=== PATIENT | female | born 1930 | race Caucasian/White ===

== ENCOUNTER 2017-01-18 06:39 | Emergency (ER) | payer MEDICARE, OTHER ==
[~2017-01-18 06:39] MED LIST: ASPIRIN E.C. 8181 MG PO; ATIVAN0.5 MG PO; BENADRYL ALLERG25 M2 PO; BISACODYL10 M1 REC; CELEXA 20MG20 MG/TA1 PO; CLARITIN LIQUI-10 MG PO; COLACE100 M1 PO; DAILY VALUE1 EACH PO; GOOD NEIGH1200 MG/15 PO; LIPITOR 10MG10 MG PO; LOPRESSOR100 M1 PO; NAMENDA PO; REQUIP 0.5MG0.5 MG PO; TYLENOL 500MG500 MG PO; ULTRAM50 M1 PO; VERAPAMIL120 MG/TA1 PO; ZOFRAN4 M2 PO; ZYPREXA 5MG5 MG PO
[2017-01-18 11:01] VITALS: BP 166/81
== END 2017-01-18 09:53 | disposition other institution (70) ==
LOC: ED 06:39
DX: A41.9 Sepsis, unspecified organism (principal); N39.0 Urinary tract infection, site not specified; R53.1 Weakness; R41.82 Altered mental status, unspecified; B96.20 Unspecified Escherichia coli [E. coli] as the cause of diseases classified elsewhere
CPT/HCPCS: A4353; J1956

== ENCOUNTER 2017-01-18 09:53 | Inpatient (IN) | payer MEDICARE, OTHER ==
[2017-01-18 10:23] VITALS: BP 154/70
--- NOTE | 2017-01-18 11:00 | NUR ---
PATIENT HEARD MOANING IN ROOM FROM NURSES STATION. PATIENT REPORTS HAVING UPSET STOMACH. THIS NURSE IN PATIENT'S ROOM TO ADMINISTER IV ATIVAN. NOTED THAT PATIENT HAS LEFT SIDED FACIAL DROOP. LEFT HAND RELATIONSHIP CONSULTANT SLIGHTLY WEAKER THAN RIGHT.
--- NOTE | 2017-01-18 11:59 | NUR ---
ASSIST PATIENT TO CHAIR PER HER REQUEST. PATIENT IS UNABLE TO STAND INDEPENDENTLY AND TAKE STEPS REQUIRED TO REACH THE CHAIR. 2 STAFF ASSIST TO CHAIR VIA PIVOT TRANSFER.
--- NOTE | 2017-01-18 12:05 | NUR ---
REPORT RECEIVED FROM CUCO PINEDO,
--- NOTE | 2017-01-18 12:10 | NUR ---
PATIENT HEARD MOANING IN ROOM FROM NURSES STATION. ASKS MULTIPLE TIMES WHERE HER IS. STATES THAT SHE IS SCARED. WHEN ASKED WHY PATIENT STATES "I DON'T WANT TO FALL" PATIENT TOLD THAT SHE IS IN THE HOSPITAL AND THAT SHE IS SAFE.
--- NOTE | 2017-01-18 13:50 | NUR ---
PATIENT ASSISTED FROM RECLINER TO BEDSIDE COMMODE. 2 PERSON MAXIMUM ASSIST REQUIRED FOR PIVOT TRANSFER. PATIENT NERVOUS ABOUT GETTING UP. IS VERY STIFF AND SHAKING DURING TRANSFER. HOLDING ONTO ARM REST ON CHAIR AND GRABS SOLDER DEPOSIT OPERATOR'S HAND AND HAD TO BE TOLD MULTIPLE TIMES TO LET GO BEFORE RELEASING. STATES "ARE YOU GUYS GOING TO HELP ME? I DON'T THINK I CAN DO IT." PATIENT INCONTINENT OF URINE. UNABLE TO VOID WHILE ON COMMODE. PATIENT ASSISTED INTO BED. SAUD CARE PROVIDED. MILD REDNESS PRESENT TO PATIENT'S GROIN FOLDS. SKIN INTACT. BARRIER CREAM APPLIED. CLEAN BRIEF APPLIED. EKG OBTAINED PER ORDER. EKG REPORT SHOWN TO ELISSA TRAN. CALL LIGHT WITHIN REACH. BED ALARM ON.
--- NOTE | 2017-01-18 15:00 | NUR ---
PATIENT'S NEURO ASSESSMENT COMPLETE. PATIENT ALERT. ORIENTED TO PERSON AND DATE OF . STATES "HOSPITAL" WHEN ASKED WHERE SHE IS BUT IS UNABLE TO VERBALIZE WHICH HOSPITAL AND AGE. SPEECH CLEAR. PATIENT HAS MILD LEFT SIDED FACIAL DROOP. LEFT UPPER EXT SLIGHTLY WEAKER GRASP THAN RIGHT. LEFT PUPIL 3MM RIGHT 2MM. BOTH PUPILS REACTIVE TO LIGHT. PATIENT ABLE TO LIFT BILAT LOWER EXT OFF BED APPROXIMATELY 1 INCH. BILAT LOWER EXT WEAK. WEAKNESS EQUAL. ELISSA TRAN NOTIFIED.
[2017-01-18 15:22] VITALS: BP 158/72
[2017-01-18 18:28] VITALS: BP 133/68
--- NOTE | 2017-01-18 19:20 | NUR ---
REPORT GIVEN TO SHAHIDA TSANG
--- NOTE | 2017-01-18 19:25 | NUR ---
1919 Report received from Melanie Proctor RN
--- NOTE | 2017-01-18 19:30 | NUR ---
Pt given Given CD of [employer] and CD player to listen to it.
--- NOTE | 2017-01-18 19:45 | NUR ---
See shift assessment.
--- NOTE | 2017-01-18 20:30 | NUR ---
See shift assessment. HS care given, oral care given. Pt tolerated well. Incontinent of urine. Negin care given, depends change. Right groin skin continues to be reddem. Skin CDI.
--- NOTE | 2017-01-18 20:43 | NUR ---
Pt given evening medication, pt swallow medications without difficulty. Given ativan PO. Explained to pt is would help her relax and not feel so scared. Pt agreed.
[2017-01-18 22:29] VITALS: BP 159/66
--- NOTE | 2017-01-18 22:30 | NUR ---
Resting in bed, eyes closed, even and none labored respirations. Bed alarm on. IV fluids NS continue to infuse via IV pump at 83mls/hour.
--- NOTE | 2017-01-18 23:40 | NUR ---
Q hourly checks done. Pt has been resting in bed, eyes closed even respirations. Bed alarm on. Currently awake. Pt requesting "something to help her sleep." Pt informed she could get her ativan in one hour. Pt agreed.
[2017-01-19] VITALS (7 sets, daily range): BP systolic 134–182; BP diastolic 65–94
--- NOTE | 2017-01-19 00:36 | NUR ---
Pt has been calling out for "Tanja". Tanja NUCLEAR POWERPLANT SUPERVISOR and myself have taken turns sitting in with pt and talking with her. Pt is calm. 0030 Pt given ativan PO. No difficulty noted swallowing pill or water. Sitting in with pt until she falls asleep.
--- NOTE | 2017-01-19 00:40 | NUR ---
Pt is able to state that Manuela is coming up this month. Pt is able to given the month and year she was born. Pt is able to tell me she is in the hospital. Pt is able to follow commands. She asks questions about why she is in the hospital. Pt needs assistances holding cup to drink. No difficulty swallowing pills or water.
--- NOTE | 2017-01-19 01:49 | NUR ---
Resting in bed, eyes closed, even none labored respirations. Bed alarm on.
--- NOTE | 2017-01-19 02:10 | NUR ---
Awake alert and oriented to self. Pt able to tell me she is at the hospital, ablet to tell me her the month and year she was born. Able to tell me is the next holiday coming up. Able to virtual recruiter with both right and left hands. Strength is weak and equal. Pupils equal and reactive to light. At 0200 Pt was incontinent of urine. Negin care given, depends changed. Pt c/o of pain on right upper abd when turn. No c/o's of pain when abd palpated. Abd soft, bowel sounds active. Pt repositioned on left side. Given warm blanket, applied abd.
--- NOTE | 2017-01-19 02:40 | NUR ---
Resting in bed, eyes closed, even respirations. Bed alarm on
--- NOTE | 2017-01-19 03:20 | NUR ---
Pt able to drink water with out difficulty swallowing. Pt repositioned at 0315.
--- NOTE | 2017-01-19 03:21 | NUR ---
At 0305 Pt awake in bed. A/o to self. Able to give month and year. Able to tell me she is in the hospital. When ask what button to push for nurse, pt states the red button and points to it. Pt c/o of headache. Pupils equal and reactive to light. Equal information technology specialist strength ing right and left hands. Strength is weak. Equal strength in lower extremeties. Lower extremeties strength weak. Pt follow commands. BP 134/66, pulse 59, respirations 18, Sa02 93% on room air. Temp 98.0 (oral). Lungs CTA. 0310 Brought in ultram for pt's headache. Pt stated I forgot all about it.
--- NOTE | 2017-01-19 05:20 | NUR ---
Pt awake, calling out for "Tanja". Pt denied having any pain. Pupils equal and reactive to light. A/o to self. Able to tell me she is at the hospital. Able to tell me her month and year. Pt repositioned.
--- NOTE | 2017-01-19 05:39 | NUR ---
Pt calling out. States she is afraid. Pt comforted, reminded she is safe at the hospital. Pt asked a few questions regarding her stay. She asked " are you going to take care of me." Aske why she was here. Pt reminded. Pt agreed.
--- NOTE | 2017-01-19 07:00 | NUR ---
Report given to Melanie Proctor RN
--- NOTE | 2017-01-19 07:05 | NUR ---
REPORT RECEIVED FROM SHAHIDA TSANG
--- NOTE | 2017-01-19 07:13 | NUR ---
Pt's Sa02 95%, on room air.
--- NOTE | 2017-01-19 07:13 | NUR ---
Pt calling out. Pt continues to be calm once nuring staff is in the room. Pt able to tell me she is in the hospital. Pt able to tell me her month and year. Pt c/o's of nausea, and states she's afraid. Pt given ativan PO and zofran 4mg IV. IV fluids NS continue to infuse at 83mls/hour. Bed alarm set.
--- NOTE | 2017-01-19 07:50 | NUR ---
PATIENT LYING IN BED. SHIFT ASSESSMENT COMPLETE. PATIENT ALERT. ORIENTED TO PERSON, DATE OF , AND AGE. DENIES ANY SHORTNESS OF BREATH OR DIFFICULTIES BREATHING. DENIES ANY PAIN OR DISCOMFORTS AT THIS TIME. PATIENT SEEMS TO BE TRACKING MORE THIS MORNING THAN YESTERDAY. WHEN THIS NURSE WALKED INTO ROOM PATIENT STATES "ELLEN IS THAT YOU" NOT SEVERE OF A FACIAL DROOP TO LEFT SIDE NOTICED THIS MORNING. LEFT UPPER EXT RN PRIVATE DUTY CONTINUES TO BE SLIGHTLY WEAKER THAN RIGHT, BUT IS NOT SIGNIFICANT OF A DIFFERENCE BETWEEN LEFT AND RIGHT YESTERDAY. PATIENT HAS NORMAL SALINE INFUSING AT 83 MLS/HR. PATIENT'S CALL LIGHT WITHIN REACH. BED ALARM ON.
--- NOTE | 2017-01-19 17:06 | NUR ---
Pt's has stated that he does not believe he can take care of pt at home any longer as she has become very weak in the last two weeks and recently cannot use her walker. Culture results show > 100,000 Ecoli, awaiting sensitivity as pt is currently being treated w/ Levaquin. Pt's requests [facility] for LTC, OR if pt gets 3 midnights, Assisted at . Kelsey at is aware that pt may be discharged to either LTC on Sun or SN on Sunday @ [facility]. [facility] states that they can accept this pt over the weekend as they are familiar w/ her. She will let her nursing staff at know this.
--- NOTE | 2017-01-19 17:33 | NUR ---
Discuss w/ pt's that pt may discharge in the next 48 hours and explain that if she is discharged on Sat she will not get a SN stay at , she would be admitted LTC. Pt's verbalizes understanding and signs IM letter on this date.
--- NOTE | 2017-01-19 19:15 | NUR ---
REPORT GIVEN TO SHAHIDA MONTGOMERY
--- NOTE | 2017-01-19 23:30 | NUR ---
PT MOANING AND GROANING SINCE ASSUMING CARE. PT REFUSING TO TAKE ANY MEDS AT THIS TIME. LEATHER DRIER SITS WITH PT AT TIMES AND THAT SEEMS TO CALM HER DOWN FOR AWHILE. WHEN ASKED, PT DENIES PAIN OR ANY NEEDS. STATES SHE JUST WANTS TO SLEEP. ENCOURAGED PT TO CLOSE HER EYES AND TRY TO GET SOME. INFORMED HER I CAN GIVE HER ATIVAN. PT REFUSES.
--- NOTE | 2017-01-20 00:30 | NUR ---
PT BLADDER SCANNED TO SEE IF THAT IS WHY SHE IS NOT SLEEPING AND MAKING HER UNCOMFORTABLE. BLADDER SCANNED FOR 85ML. PT DID NOT COOPERATE WELL WITH BLADDER SCANNING. PT USED FOWL LANGUAGE AND WANTED US TO GET OUT.
--- NOTE | 2017-01-20 00:59 | NUR ---
PT HAS NOT SLEPT ALL NIGHT. PT HAS BEEN MOANING LOUDLY ALL NIGHT. REFUSES TO TAKE ANY MEDS. DR INFORMED OF PT'S CONDITION. RECEIVED ORDER FOR ZYPREXA 5MG ODT. MED GIVEN TO PT. WILL CONT TO MONITOR CLOSELY.
[2017-01-20 02:15] VITALS: BP 157/84
--- NOTE | 2017-01-20 02:45 | NUR ---
PT CONTINUES TO MOAN AND CALL OUT. DR HOLLAND INFORMED SHE HAS NOT SLEPT ALL NIGHT. PT CONVENCED SHE HAS HAD AN ABDOMINAL SURGERY AFTER WE BLADDER SCANNED HER. RECIEVED ORDER FOR HALODOL 2MG IM. HALODOL GIVEN IN RT DELTOID AT 0232. AFTER HALODOL GIVEN, PT REQUESTING ICECREAM. RN WENT BACK INTO ROOM WITH ICECREAM AND PT STATED "I PEED MY PANTS". PT THEN CLEANED UP. PT NOW CURRENLTY SITTING UP IN BED EATING ICECREAM. WILL CONT TO MONITOR.
--- NOTE | 2017-01-20 03:20 | NUR ---
PT DONE EATING ICE CREAM. PT REQUESTING TO LAY DOWN. PT THEN STATED "I HAVE RESTLESS LEGS, CAN YOU GIVE ME MY MEDICINE FOR THAT". INFORMED HER SHE REFUSED IT EARLIER IN THE SHIFT. PT STATES SHE WANTS HER NIGHT MEDS NOW. REQUIP AND LIPITOR GIVEN. PT THEN SETTLED FOR BED. WILL CONT TO MONITOR. BED ALARM IN ON AND CALL LIGHT IS WITHIN REACH.
--- NOTE | 2017-01-20 04:19 | NUR ---
Pt asking for . Attempted to call at number on face sheet. Number states that the [employer] costomer is not available at this time. Attempted 2nd number on face sheet and it was Alber Roth. Pt informed of attempts to get ahold of . Will cont to monitor.
--- NOTE | 2017-01-20 04:29 | NUR ---
Pt c/o headache and restless legs. Ultram 50 mg po and Ativan 0.5 mg po given. Pt unable to rate pain.
--- NOTE | 2017-01-20 05:31 | NUR ---
3rd phone number found and was finally able to get ahold of pt's . He states will be here in approx 1 hr to see pt.
[2017-01-20 06:27] VITALS: BP 142/79
--- NOTE | 2017-01-20 07:15 | NUR ---
NOW AT 'S BADSIDE. REPORT GIVEN TO SHAHIDA SALEEM.
--- NOTE | 2017-01-20 08:50 | NUR ---
PATIENT IS CONFUSED AND OFTEN MAKES ODD COMMENTS THAT DO NOT RELATE THE SITUATION. PATIENT IS SOMETIMES IMPULSIVE AND TRIES TO GET OUT OF BED. bED ALARM IS SET, CALL LIGHT IS WITHIN REACH, AND PATIENT'S IS IN THE ROOM WITH HER.
[2017-01-20 11:00] VITALS: BP 185/81
[2017-01-20 15:33] VITALS: BP 181/84
--- NOTE | 2017-01-20 19:00 | NUR ---
Report received from Curtis Suárez RN
--- NOTE | 2017-01-20 19:05 | NUR ---
IV of NS infusing at 83mls/hour. No redness, no swelling and none tender to touch.
[2017-01-20 19:31] VITALS: BP 155/94
--- NOTE | 2017-01-20 20:30 | NUR ---
2019 Resting in bed, eyes closed even respirations. Bed alarm on. Pt opened when touched and spoken too. Pt alert to self. Pt able to tell her month and year. Unable to stated where she is. Re-oriented. Pt became agitated and stated "What are you doing ? Just leave me alone." Pt reminded she was in the hospital and that I was her nurse and assessing her. Pt responed "Oh." 2034 Pt able to repeat back that she is in the hospital, is the next holiday coming up. See shift assessment. Pt c/oing of being cold and stating "just leave me alone." Pt stated she did not want to take her evening medication. Stated "I'll take them when I get home." Pt reminded she would be in the hospital for awhile. Pt response "oh." Pt took schedule even medication with a lot of encouragement. Bed alarm on.
--- NOTE | 2017-01-20 22:30 | NUR ---
Resting in bed, with eyes closed, respirations even. Bed alarm on. Q hourly checks done.
[2017-01-20 22:51] VITALS: BP 90/47
--- NOTE | 2017-01-21 01:00 | NUR ---
Q hourly checks done, continues to rest in bed with eyes closed even respirations. Bed alarm on. phoned in report given on pt's condition.
--- NOTE | 2017-01-21 02:00 | NUR ---
Pt turned call light on. Stated " I need to get up to the bathroom." Asked pt if she needed to have a BM. Pt stated "no." Asked if she felt like she needed to urinate. Pt stated "yes." Pt reminded she had a gibson catheter. Pt stated "no I don't." Pt shown catheter and gibson bag. Pt then stated. " I just need to get up out of this bed." Pt confused, easily reoriented. Pt denied pain. One person assist from bed to chair. Pt used walker, gait belt and shoes on. Pt denied SOB, chest pain, or nausea. Gibson catheter check. Gibson in place. Yellow urine noted. Pt denied pain or discomfort from gibson catheter. Pt denied feeling the need to urinate. TV turned on for pt. Given call light re-orient to call light system and TV. Chair alarm on.
--- NOTE | 2017-01-21 02:45 | NUR ---
Q hourly checks done. Pt resting in bed eyes closed even respirations. Bed alarm on. Pt opens eyes when spoken too. Alert to self. Unable state month or year. Unable to state she's in the hospital. Pt confused. Attempted to re-orient. Pupils continue to be unequal in size. right size 2mm. left size 4mm, pupils reactive. Manager Business Intelligence strength equal and weak in right and left hand. Lower extremities strength equal and weak. Pt able to follow commands. Pt incontinent of urine. IV of NS continues to infuse at 83mls/hour. Pt repositioned. bed alarm on.
--- NOTE | 2017-01-21 02:54 | NUR ---
Pt turned call light on. Transfered back to bed one assist, gait belt and shoes on. Used walker and SAP PLANT MAINTENANCE CONSULTANT at side. Continues to have no complaints.
[2017-01-21 03:01] VITALS: BP 142/77
--- NOTE | 2017-01-21 05:30 | NUR ---
Resting in bed, eyes closed, even none labored respirations. Opened eyes when spoken too. No c/o's voiced. Pt follows commands. Alert to self. Pt drowsy. Incontinent of urine. Negin care given, depends changed.
[2017-01-21 06:12] VITALS: BP 150/69
--- NOTE | 2017-01-21 06:30 | NUR ---
Pupils reactive to light, pupil size 2mm for right and left.
--- NOTE | 2017-01-21 07:05 | NUR ---
Report received from SHAHIDA Doe.
--- NOTE | 2017-01-21 07:10 | NUR ---
Report given too. Snow Kay RN
--- NOTE | 2017-01-21 07:50 | NUR ---
Assessment completed. Pt up to chair at this time without complaints. Alert to name and birthdate only. Upper extremities cool, lower extremities warm. Pt denies any pain and no noted pain using faces scale. Noted pt drowsy from seroquel but pleasant when awakened several times during assessment.
[2017-01-21 11:30] VITALS: BP 164/75
[2017-01-21] MEDS ORDERED: BACTRIM DS 8001 TAB PO (13:05)
[2017-01-21] MEDS ORDERED: QUETIAPINE FUMA25 M1 PO (13:07)
[2017-01-21 13:28] VITALS: BP 164/75
--- NOTE | 2017-01-21 13:45 | NUR ---
Report called to Katelyn, charge nurse at [facility]. Pt discharging there for skilled care. Questions answered.
--- NOTE | 2017-01-21 14:10 | NUR ---
Pt left in wheelchair with Leander from [facility]. Vitals stable. Discharge paperwork reviewed with patient's spouse. All questions answered to satisfaction. No home meds were brought in.
== END 2017-01-21 14:10 | DRG 872 ==
LOC: MED/SURG 09:53
PROVIDERS: ADMIT Physician Assistant
DX: A41.9 Sepsis, unspecified organism (principal); N39.0 Urinary tract infection, site not specified; F03.91 Unspecified dementia, unspecified severity, with behavioral disturbance; Z66 Do not resuscitate; R53.1 Weakness; R32 Unspecified urinary incontinence; I10 Essential (primary) hypertension; E78.5 Hyperlipidemia, unspecified; M19.90 Unspecified osteoarthritis, unspecified site; Z86.73 Personal history of transient ischemic attack (TIA), and cerebral infarction without residual deficits
CPT/HCPCS: J1630; J1650; J1956; J2060; J2405; J7030

== ENCOUNTER 2017-04-18 06:04 | Emergency (ER) | payer MEDICARE, OTHER ==
[~2017-04-18 06:04] MED LIST changes: +BACTRIM DS 8001 TAB PO; +QUETIAPINE FUMA25 M1 PO
[2017-04-18 15:05] VITALS: BP 168/93
== END 2017-04-18 15:14 | disposition home or self-care (01) ==
LOC: ED 06:04
DX: F03.90 Unspecified dementia, unspecified severity, without behavioral disturbance, psychotic disturbance, mood disturbance, and anxiety (principal); R53.1 Weakness; R26.2 Difficulty in walking, not elsewhere classified; I10 Essential (primary) hypertension; F41.9 Anxiety disorder, unspecified; Z86.73 Personal history of transient ischemic attack (TIA), and cerebral infarction without residual deficits
CPT/HCPCS: A4353; J7030